=== PATIENT | male | born 1990 | race Two or more races ===

== ENCOUNTER 2016-05-08 17:39 | Emergency (ER) | payer OTHER ==
--- NOTE | 2016-05-08 18:14 | UC ---
Back Pain HPI - HPI Summary HPI Summary: The patient comes in today for: 1. Lower right back pain: Onset: This morning. Palliative/provocative: Nothing makes it better or worse. Quality: Sharp Region: Right lower back with radiation to the groin Severity: 02/11 Time: Constant. Associated symptoms: Fevers: No temperature taken at home. Kidney problems/stones: none before. * - History of Current Complaint Chief Complaint: UCBackPain Stated Complaint: BACK PAIN Time Seen by Provider: 05/08/16 17:52 Hx Obtained From: Patient - Allergies/Home Medications Allergies/Adverse Reactions: Allergies Allergy/AdvReac Type Severity Reaction Status Date / Time No Known Allergies Allergy Verified 05/08/16 17:50 Home Medications: Home Medications Ibuprofen [Advil] 400 mg PO ONCE PRN 05/08/16 [History Confirmed 05/08/16] PMH/Surg Hx/FS Hx/Imm Hx Previously Healthy: Yes Endocrine History Of: Denies: Diabetes, Thyroid Disease, Hyperthyroidism, Hypothyroidism, Dyslipidemia Cardiovascular History Of: Denies: Cardiac Disorders, Hypertension, Pacemaker/ICD, Myocardial Infarction , Congestive Heart Failure, Atrial Fibrillation, Deep Vein Thrombosis, Bleeding Disorders Respiratory History Of: Denies: COPD, Asthma, Bronchitis, Pneumonia, Pulmonary Embolism GI/ History Of: Denies: Gastroesophageal Reflux, Ulcer, Gastrointestinal Bleed, Gall Bladder Disease, Kidney Stones, Diverticulitis, Renal Disease, Urosepsis Neurological History Of: Denies: TIA, CVA, Dementia, Seizures, Migraine Psychological History Of: Denies: Anxiety, Depression, Bipolar Disorder, Schizophrenia, Post Traumatic Stress Disorder Cancer History Of: Denies: Lung Cancer, Colorectal Cancer, Breast Cancer, Prostate Cancer, Cervical Cancer Other History Of: Negative For: HIV, Hepatitis B, Hepatitis C, Anticoagulant Therapy - Surgical History Surgical History: Yes Surgery Procedure, Year, and Place: SURGERY FOR BOWEL OBSTRUCTION 2012 [facility]. SURGERY FOR BOWEL OBSTRUCTION [facility]ANT - Family History Known Family History: Positive: Other - Mother had kidney stone. Negative: Cardiac Disease, Hypertension - Social History Occupation: Employed Full-time Alcohol Use: Rare Substance Use Type: None Smoking Status (MU): Never Smoked Tobacco Review of Systems Constitutional: Fever Skin: Negative Eyes: Negative ENT: Negative Respiratory: Negative Cardiovascular: Negative Gastrointestinal: Abdominal Pain Genitourinary: Dysuria, Hematuria All Other Systems Reviewed And Are Negative: Yes Physical Exam Triage Information Reviewed: Yes Appearance: Pain Distress - He was crying at times during the exam., Thin Vital Signs: Initial Vital Signs Temp 100.5 F 05/08/16 17:47 Pulse 90 05/08/16 17:47 Resp 18 05/08/16 17:47 BP 128/73 05/08/16 17:47 Pulse Ox 99 05/08/16 17:47 Vital Signs Reviewed: Yes Eyes: Positive: Conjunctiva Inflamed - He states that his, Discharge - clear- tear-like ENT: Positive: Hearing grossly normal. Negative: Pharyngeal erythema, Nasal congestion, Nasal drainage, TM bulging, TM dull, TM red, Tonsillar swelling, Tonsillar exudate Dental: Negative: Gross Decay/Caries @, Dental Fracture @ Neck: Positive: Supple, Nontender, No Lymphadenopathy. Negative: Nuchal Rigidity Respiratory: Positive: Lungs clear, No respiratory distress, No accessory muscle use. Negative: Crackles, Wheezing Cardiovascular: Positive: RRR, No Murmur Abdomen Description: Positive: No Organomegaly, Soft, McBurney's Point Tenderness. Negative: Nontender - He has generalized tenderness to palpation of the abdomen. There was no rebound or percussion tenderness., CVA Tenderness (R), CVA Tenderness (L), Distended, Peritoneal Signs Musculoskeletal: Positive: Strength Intact, ROM Intact Neurological: Positive: Alert, Muscle Tone Normal Psychological: Positive: Normal Response To Family, Age Appropriate Behavior, Consolable Skin: Positive: Other - Positive-midline old surgical scar of the abdomen.. Negative: rashes, breakdown Diagnostics - Laboratory Diagnostic Studies Completed/Ordered: Urine screen: Specific gravity: 1.005. WBC: 25. Nitrite: (-). Blood: 3+. Protein: > 500. Glucose: (-) - Radiology No standard instances Xray Interpretation: Positive (See Comments) - IMPRESSION: Mild to moderate RIGHT hydronephrosis is traced to a 3.5 mm stone at the RIGHT ureterovesicular junction. Additional 4 mm stone midpole calyx RIGHT kidney. Radiology Interpretation Completed By: Radiologist Back Pain Course/Dx - Course Course Of Treatment: Patient was told of the abnormal CT scan. Case was discussed with him and family and he agrees to go to the ER for evaluation and treatment. He wants to go via ambulance. In terms of pain control, the patient declined an injection of pain medication ("I dont' want an injection in my butt.") - Differential Dx/Diagnosis Provider Diagnoses: Right moderat hydronephrosis/renal stones, abdominal pain, fever. Discharge - Discharge Plan Condition: Stable [facility] Additional Instructions: Patient going directly to the [facility].
--- NOTE | 2016-05-08 19:06 | RAD ---
INDICATION: RIGHT flank pain radiating to the groin. Hematuria. Previous surgery for bowel obstruction as an infant. COMPARISON: August 25, 2015 CT. TECHNIQUE: Multidetector CT images were obtained from the lung bases to the ischial tuberosities. Evaluation of the viscera is limited without IV contrast. Multiplanar reformation. REPORT: Unremarkable visualized inferior thorax. Negative for CT abnormality of the unenhanced liver, gallbladder, pancreas, spleen. Gastric distention with food stuff. No CT abnormality of the small bowel. 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 The appendix is not definitively identified with assessment limited without oral and IV contrast.. No pericecal inflammatory change evident. Negative for ascites, free air, hernias. Unremarkable adrenal glands. 4 mm mid pole calyceal stone RIGHT kidney. Mild to moderate RIGHT hydronephrosis is traced to a 3.5 mm stone at the RIGHT ureterovesicular junction. Negative for LEFT urolithiasis or hydronephrosis. Aside from the RIGHT UVJ stone the urinary bladder is grossly unremarkable. No lymphadenopathy evident. Unremarkable dominant retroperitoneal vasculature with physiologic distention of the IVC. Negative for suspicious osseous lesions. IMPRESSION: Mild to moderate RIGHT hydronephrosis is traced to a 3.5 mm stone at the RIGHT ureterovesicular junction. Additional 4 mm stone midpole calyx RIGHT kidney.
[2016-05-08 19:34] VITALS: BP 117/73
== END 2016-05-08 20:04 | disposition short-term general hospital (02) ==
LOC: UCEAST 17:39
DX: N13.2 Hydronephrosis with renal and ureteral calculous obstruction (principal); R10.31 Right lower quadrant pain; R50.9 Fever, unspecified
CPT/HCPCS: 74176; 81002; 87086; 99203; G0463

== ENCOUNTER 2016-05-08 20:24 | Emergency (ER) | payer OTHER ==
[2016-05-08] MEDS ORDERED: NS 0.9% 1000 ML* 2,000 ML IV ONE (20:53)
[2016-05-08] MEDS ORDERED: Ketorolac INJ* 30 MG/ML 1 ML VIAL IV ONE (20:53)
[2016-05-08] MEDS ORDERED: Ondansetron INJ* 2 MG/ML VIAL IV ONE (20:53)
[2016-05-08 21:09] LABS: Hematocrit 43 % (42-52); Hemoglobin 14.4 g/dl (14.0-18.0); Mean Corpuscular HGB Conc 33 g/dl (31-36); Mean Corpuscular Hemoglobin 29 pg (27-31); Mean Corpuscular Volume 88 fL (80-94); Mean Platelet Volume 9 um3 (7.4-10.4); Red Blood Count 4.89 10^6/ul (4.0-5.4); Red Cell Distribution Width 13 % (10.5-15); White Blood Count 12.4 10^3/ul (3.5-10.8)
[2016-05-08 21:20] LABS: Albumin 3.8 g/dL (3.2-5.2); BUN/Creatinine Ratio 10.9 (8-20); Calcium 8.8 mg/dL (8.6-10.3); EGFR African American 80.2 (>60); EGFR Non-African American 62.3 (>60); Globulin 2.7 g/dL (2-4); Magnesium 2.1 mg/dL (1.9-2.7); Potassium 3.4 mmol/L (3.5-5.0); Total Bilirubin 0.3 mg/dL (0.2-1.0); Total Protein 6.5 g/dL (6.4-8.9)
[2016-05-08] MEDS ORDERED: Tamsulosin CAP* 0.4 MG PO ONE (21:23)
--- NOTE | 2016-05-08 22:04 | ED ---
Michelle Tierney Claudia, scribed for Bobo Kitchen MD on 05/08/16 at 2054 . Abdominal Pain/Male - HPI Summary HPI Summary: 25 year old male presents to the ED with abd pain. Pt notes sudden onset when he woke up this am. Pt notes pain is a 10/10. He also admits to dysuria, fever and nausea but denies vomiting. Pt notes he has 2 kidney stones which was determined at [facility] earlier today. - History of Current Complaint Chief Complaint: EDFlankPain Stated Complaint: BACK PAIN Time Seen by Provider: 05/08/16 20:48 Hx Obtained From: Patient Onset/Duration: Sudden Onset, Still Present Timing: Constant Pain Intensity: 10 Pain Scale Used: 0-10 Numeric Location: Flank, Other - back Character: Sharp Associated Signs And Symptoms: Positive: Urinary Symptoms - Allergies/Home Medications Allergies/Adverse Reactions: Allergies Allergy/AdvReac Type Severity Reaction Status Date / Time No Known Allergies Allergy Verified 05/08/16 17:50 PMH/Surg Hx/FS Hx/Imm Hx Previously Healthy: Yes Endocrine/Hematology History: Denies: Hx Anticoagulant Therapy, Hx Diabetes, Hx Thyroid Disease Cardiovascular History: Denies: Hx Congestive Heart Failure, Hx Deep Vein Thrombosis, Hx Hypertension , Hx Myocardial Infarction, Hx Pacemaker/ICD Respiratory History: Denies: Hx Asthma, Hx Chronic Obstructive Pulmonary Disease (COPD), Hx Lung Cancer, Hx Pneumonia, Hx Pulmonary Embolism GI History: Denies: Hx Gall Bladder Disease, Hx Gastrointestinal Bleed, Hx Ulcer, Hx Urosepsis History: Denies: Hx Dialysis, Hx Kidney Stones, Hx Renal Disease Neurological History: Denies: Hx Dementia, Hx Migraine, Hx Seizures, Hx Transient Ischemic Attacks (TIA) Psychiatric History: Denies: Hx Anxiety, Hx Depression, Hx Schizophrenia, Hx Bipolar Disorder - Surgical History Surgery Procedure, Year, and Place: SURGERY FOR BOWEL OBSTRUCTION [address] [facility]. SURGERY FOR BOWEL OBSTRUCTION Infectious Disease History: No Infectious Disease History: Denies: Traveled Outside the [place] in Last 30 Days - Family History Known Family History: Positive: Other - Mother had kidney stone. Negative: Cardiac Disease, Hypertension - Social History Occupation: Employed Full-time Alcohol Use: Rare Substance Use Type: Reports: None Smoking Status (MU): Never Smoked Tobacco Review of Systems Positive: Fever Eyes: Negative ENT: Negative Cardiovascular: Negative Respiratory: Negative Positive: Abdominal Pain, Nausea. Negative: Vomiting Positive: dysuria, flank pain - and back pain Musculoskeletal: Negative Skin: Negative Neurological: Negative Psychological: Normal All Other Systems Reviewed And Are Negative: Yes Physical Exam Triage Information Reviewed: Yes Vital Signs On Initial Exam: Initial Vitals Temp Pulse Resp BP Pulse Ox 100.2 F 80 15 126/83 96 05/08/16 20:25 05/08/16 20:25 05/08/16 20:25 05/08/16 20:25 05/08/16 20:25 Vital Signs Reviewed: Yes Appearance: Positive: Pain Distress - mild discomfort, Thin Skin: Positive: Warm Head/Face: Positive: Normal Head/Face Inspection Eyes: Positive: RILEY ENT: Positive: Hearing grossly normal Neck: Positive: Supple Respiratory/Lung Sounds: Positive: Clear to Auscultation, Breath Sounds Present Cardiovascular: Positive: Normal Abdomen Description: Positive: Nontender, No Organomegaly, Soft. Negative: CVA Tenderness (R), CVA Tenderness (L) Bowel Sounds: Positive: Present Musculoskeletal: Positive: Strength/ROM Intact Neurological: Positive: Alert, Oriented to Person Place, Time Psychiatric: Positive: Normal Diagnostics - Vital Signs Vital Signs Temp Pulse Resp BP Pulse Ox 05/08/16 20:25 100.2 F 80 15 126/83 96 - Laboratory Lab Results: Lab Results 05/08/16 05/08/16 Range/Units 20:45 20:45 WBC 12.4 H (3.5-10.8) 10^3/ul RBC 4.89 (4.0-5.4) 10^6/ul Hgb 14.4 (14.0-18.0) g/dl Hct 43 (42-52) % MCV 88 (80-94) fL MCH 29 (27-31) pg MCHC 33 (31-36) g/dl RDW 13 (10.5-15) % Plt Count 182 (150-450) 10^3/ul MPV 9 (7.4-10.4) um3 Neut % (Auto) 80.1 (38-83) % Lymph % (Auto) 11.7 L (25-47) % [place] % (Auto) 7.6 (1-9) % Eos % (Auto) 0.3 (0-6) % Baso % (Auto) 0.3 (0-2) % Absolute Neuts (auto) 10.0 H (1.5-7.7) 10^3/ul Absolute Lymphs (auto) 1.5 (1.0-4.8) 10^3/ul Absolute Monos (auto) 1.0 H (0-0.8) 10^3/ul Absolute Eos (auto) 0 (0-0.6) 10^3/ul Absolute Basos (auto) 0 (0-0.2) 10^3/ul Absolute Nucleated RBC 0 10^3/ul Nucleated RBC % 0 Sodium 139 (133-145) mmol/L Potassium 3.4 L (3.5-5.0) mmol/L Chloride 107 (101-111) mmol/L Carbon Dioxide 28 (22-32) mmol/L Anion Gap 4 (2-11) mmol/L BUN 15 (6-24) mg/dL Creatinine 1.37 H (0.67-1.17) mg/dL Est GFR ( Amer) 80.2 (>60) Est GFR (Non-Af Amer) 62.3 (>60) BUN/Creatinine Ratio 10.9 (8-20) Glucose 116 H (70-100) mg/dL Calcium 8.8 (8.6-10.3) mg/dL Magnesium 2.1 (1.9-2.7) mg/dL Total Bilirubin 0.30 (0.2-1.0) mg/dL AST 18 (13-39) U/L ALT 10 (7-52) U/L Alkaline Phosphatase 77 (34-104) U/L Total Protein 6.5 (6.4-8.9) g/dL Albumin 3.8 (3.2-5.2) g/dL Globulin 2.7 (2-4) g/dL Albumin/Globulin Ratio 1.4 (1-3) Lipase 25 (11.0-82.0) U/L Result Diagrams: 05/08/16 20:45 05/08/16 20:45 Lab Statement: Any lab studies that have been ordered have been reviewed, and results considered in the medical decision making process. Re-Evaluation - Re-Evaluation 1 Re-Evaluation Time: 23:35 Change: Improved Comment: Patient is improved and agrees with the plan to be d/c home and follow- up with . Abdominal Pain Fem Course/Dx - Course Assessment/Plan: Pt presents with back/flank pain with Dx kidney stones. Pt pain is imporved in ED. Patient agrees with plan ot be d/c home with follow-up wih . - Diagnoses Provider Diagnoses: Renal colic Discharge - Discharge Plan Condition: Stable Disposition: HOME Prescriptions: Naproxen TAB* [Naprosyn TAB*] 500 mg PO BID #30 tab Tamsulosin CAP* [Flomax CAP*] 0.4 mg PO BEDTIME #7 cap Patient Education Materials: Kidney Stones (ED), Renal Colic (ED), Naproxen ( By mouth), Tamsulosin (By mouth) Referrals: Sam Parson MD [Medical Doctor] - 2 Days (Please follow-up. ) The documentation as recorded by the Michelle buitrago Claudia accurately reflects the service I personally performed and the decisions made by , Bobo Kitchen MD.
[2016-05-08 23:12] LABS: Urine Bacteria Absent (Absent); Urine Bilirubin Negative (Negative); Urine Glucose Negative (Negative); Urine Nitrite Negative (Negative)
[2016-05-08] MEDS ORDERED: HYDROcodone/ACETAMIN 5-325 MG* 1 TAB PO ONE (23:32)
[2016-05-08 23:53] VITALS: BP 118/74
== END 2016-05-08 23:52 | disposition home or self-care (01) ==
LOC: ED 20:24
DX: N23 Unspecified renal colic (principal); R10.84 Generalized abdominal pain; R50.9 Fever, unspecified; R11.0 Nausea; R30.0 Dysuria
CPT/HCPCS: 36415; 80053; 81003; 81015; 83690; 83735; 85025; 96374; 96375; 99282; J1885; J2405

== ENCOUNTER 2016-08-11 17:21 | Observation (INO) | payer SELFPAY ==
[2016-08-11] MEDS ORDERED: NS 0.9% 1000 ML* 2,000 ML IV ONE (17:39)
[2016-08-11] MEDS ORDERED: Ondansetron INJ* 2 MG/ML VIAL IV ONE ×2 (17:39→19:22)
[2016-08-11] MEDS ORDERED: Ondansetron INJ* 2 MG/ML VIAL ONE (17:42)
[2016-08-11] MEDS ORDERED: Ketorolac INJ* 30 MG/ML 1 ML VIAL IV PUSH ONE (17:43)
[2016-08-11] MEDS ORDERED: Morphine INJ* 4 MG/ML 1 ML SYRINGE IV ONE (17:43)
--- NOTE | 2016-08-11 17:44 | ED ---
Abdominal Pain/Male - HPI Summary HPI Summary: 25M w/ PMH of kidney stones and bowel obstruction presents with abdominal pain, n/v/d today. He states the pain feels the same to the bowel obstructions has had in the past. He states his pain is located at his umbilicus where he had a bowel obstruction last year. He states has an he had some abdominal surgery in [place]. Three years ago he had surgery for a bowel obstruction in [place]. He states the pain is 9/10 and cramp like. He denies anyone else being sick or eating anything out of the ordinary. He denies any blood in his stool. He denies any hematuria, dysuria, or fevers. He had a sandwich this morning at 11 and was okay for a couple hours when he started to burp. - History of Current Complaint Chief Complaint: Oswaldo Stated Complaint: ABD PAIN,VOMITING Time Seen by Provider: 08/11/16 17:38 Pain Intensity: 9 - Allergies/Home Medications Allergies/Adverse Reactions: Allergies Allergy/AdvReac Type Severity Reaction Status Date / Time No Known Allergies Allergy Verified 08/11/16 17:31 PMH/Surg Hx/FS Hx/Imm Hx Endocrine/Hematology History: Denies: Hx Anticoagulant Therapy, Hx Diabetes, Hx Thyroid Disease Cardiovascular History: Denies: Hx Congestive Heart Failure, Hx Deep Vein Thrombosis, Hx Hypertension , Hx Myocardial Infarction, Hx Pacemaker/ICD Respiratory History: Denies: Hx Asthma, Hx Chronic Obstructive Pulmonary Disease (COPD), Hx Lung Cancer, Hx Pneumonia, Hx Pulmonary Embolism GI History: Reports: Hx Obstructive Bowel Denies: Hx Gall Bladder Disease, Hx Gastrointestinal Bleed, Hx Ulcer, Hx Urosepsis History: Denies: Hx Dialysis, Hx Kidney Stones, Hx Renal Disease Neurological History: Denies: Hx Dementia, Hx Migraine, Hx Seizures, Hx Transient Ischemic Attacks (TIA) Psychiatric History: Denies: Hx Anxiety, Hx Depression, Hx Schizophrenia, Hx Bipolar Disorder - Surgical History Surgery Procedure, Year, and Place: SURGERY FOR BOWEL OBSTRUCTION 2012 [facility]. SURGERY FOR BOWEL OBSTRUCTION Infectious Disease History: No Infectious Disease History: Denies: Traveled Outside the US in Last 30 Days - Family History Known Family History: Positive: Other - Mother had kidney stone. Negative: Cardiac Disease, Hypertension - Social History Alcohol Use: Rare Substance Use Type: Reports: None Smoking Status (MU): Never Smoked Tobacco Review of Systems Negative: Fever Negative: Chest Pain Negative: Shortness Of Breath Positive: Abdominal Pain, Vomiting, Diarrhea, Nausea All Other Systems Reviewed And Are Negative: Yes Physical Exam Triage Information Reviewed: Yes Vital Signs On Initial Exam: Initial Vitals Temp Pulse Resp BP Pulse Ox 97.8 F 76 18 113/62 100 08/11/16 17:31 08/11/16 17:31 08/11/16 17:31 08/11/16 17:31 08/11/16 17:31 Vital Signs Reviewed: Yes Appearance: Positive: Pain Distress Skin: Positive: Warm, Dry Head/Face: Positive: Normal Head/Face Inspection Eyes: Positive: Normal, Conjunctiva Clear Respiratory/Lung Sounds: Positive: Clear to Auscultation, Breath Sounds Present Cardiovascular: Positive: Normal, RRR Abdomen Description: Positive: Soft, Other: - tenderness at umblicius where incision scar is. Negative: Distended, Guarding Diagnostics - Vital Signs Vital Signs Temp Pulse Resp BP Pulse Ox 08/11/16 17:31 97.8 F 76 18 113/62 100 - Laboratory Result Diagrams: 08/11/16 17:54 08/11/16 17:54 Lab Statement: Any lab studies that have been ordered have been reviewed, and results considered in the medical decision making process. - Radiology ab Xray Interpretation: Positive (See Comments) - IMPRESSION: SUSPECT SMALL BOWEL OBSTRUCTION. SUGGEST FOLLOW-UP. Radiology Interpretation Completed By: Radiologist Re-Evaluation - Re-Evaluation First Eval Re-Evaluation Time: 18:45 Change: Improved Comment: no longer nausous and pain is mild. Abdominal Pain Fem Course/Dx - Course Course Of Treatment: 25M presents with abdominal pain, n/v/d today. states similiar symptoms in past when had obstruction in past. on exam moderate tenderness at umblicus where surgical scar is. no rebound tenderness. xray shows scattered air fluid levels. spoke with dr godinez who will see in ED. dr godinez recommends placing NG tube and will admit - Diagnoses Differential Diagnosis/HQI/PQRI: Appendicitis, Bowel Obstruction, Other - gastroenteritis Provider Diagnoses: Bowel obstruction - Provider Notifications Discussed Care Of Patient With: dr godinez Time Discussed With Above Provider: 18:56 - will see in ED Discharge - Discharge Plan Condition: Stable Disposition: ADMITTED TO [facility]
[2016-08-11 18:02] LABS: Add Diff/Slide Review? Slide Review Added; Comments Flag Yes; Hematocrit 48 % (42-52); Hemoglobin 15.5 g/dl (14.0-18.0); Mean Corpuscular HGB Conc 33 g/dl (31-36); Mean Corpuscular Hemoglobin 29 pg (27-31); Mean Corpuscular Volume 89 fL (80-94); Mean Platelet Volume 9 um3 (7.4-10.4); Red Blood Count 5.33 10^6/ul (4.0-5.4); Red Cell Distribution Width 14 % (10.5-15); White Blood Count 16.8 10^3/ul (3.5-10.8)
[2016-08-11 18:18] LABS: Albumin 4.6 g/dL (3.2-5.2); BUN/Creatinine Ratio 14.5 (8-20); Calcium 9.8 mg/dL (8.6-10.3); EGFR African American 142.9 (>60); EGFR Non-African American 111.1 (>60); Globulin 3.3 g/dL (2-4); Potassium 3.5 mmol/L (3.5-5.0); Total Bilirubin 0.4 mg/dL (0.2-1.0); Total Protein 7.9 g/dL (6.4-8.9)
--- NOTE | 2016-08-11 18:36 | RAD ---
INDICATION: History of bowel obstruction COMPARISON: CT May 08, 2016 TECHNIQUE: Erect and supine views of the abdomen are submitted. FINDINGS: Bones: There are no acute bony findings. Soft tissues: The soft tissues appear normal. The psoas margins are sharp. Bowel gas pattern: Paucity of gas in the colon. Distended stomach consistent unchanged) with scattered air-fluid levels suggests the possibility of bowel obstruction Calcifications: There are no abnormal calcifications. Other: None IMPRESSION: SUSPECT SMALL BOWEL OBSTRUCTION. SUGGEST FOLLOW-UP.
[2016-08-11] MEDS ORDERED: LORazepam INJ* 2 MG/ML 1 ML VIAL IV PUSH ONE (19:43)
[2016-08-11] MEDS ORDERED: LORazepam TAB(*) 1 MG PO ONE (19:43)
--- NOTE | 2016-08-11 20:35 | HP ---
H&P (Free Text) History and Physical: Surgery H & P Asked by ER to evaluate a pt. with abdominal pain and possible SBO. This pt. is a 25 y.o. male who reports he developed burping of foul-smelling stuff yesterday. He recognized this as small bowel obstruction which he had a year or so ago. This required operation when he became doubled over in pain. He says he would prefer an operation to an NGT. He has vomited, had diarrhea and a fever. He felt better a little while ago. PMHx: none PSHx: unknown abdominal operation as , SBO recently Meds: none NKDA ROS: denies SH: occ tob.; occ EtOH; neg. IVDA FH: unknown, adopted. PE: general: WDWN male in NAD Vital Signs 08/11/16 08/11/16 08/11/16 17:31 17:56 17:59 Temperature 97.8 F Pulse Rate 76 72 Respiratory 18 16 Rate Blood Pressure 113/62 107/66 (mmHg) O2 Sat by Pulse 100 98 Oximetry 08/11/16 08/11/16 08/11/16 18:00 18:30 19:00 Temperature Pulse Rate 68 75 99 Respiratory Rate Blood Pressure 107/61 102/56 112/58 (mmHg) O2 Sat by Pulse 98 98 98 Oximetry HEENT: anicteric sclerae, moist oral mucosa, neg. cervical adenopathy lung: clear to ausc. heart: reg. abd: good BS, distended, well-healed upper midline scar; fullness and tympany in mid abd. ext: neg. cyanosis, edema Laboratory Results - last 24 hr 08/11/16 08/11/16 17:54 17:54 WBC 16.8 H RBC 5.33 Hgb 15.5 Hct 48 MCV 89 MCH 29 MCHC 33 RDW 14 Plt Count 188 MPV 9 Neut % (Auto) 74.9 Lymph % (Auto) 13.9 L [place] % (Auto) 9.6 H Eos % (Auto) 0.9 Baso % (Auto) 0.7 Absolute Neuts (auto) 12.6 H Absolute Lymphs (auto) 2.3 Absolute Monos (auto) 1.6 H Absolute Eos (auto) 0.1 Absolute Basos (auto) 0.1 Absolute Nucleated RBC 0 Nucleated RBC % 0 Sodium 138 Potassium 3.5 Chloride 104 Carbon Dioxide 28 Anion Gap 6 BUN 12 Creatinine 0.83 Est GFR ( Amer) 142.9 Est GFR (Non-Af Amer) 111.1 BUN/Creatinine Ratio 14.5 Glucose 94 Calcium 9.8 Total Bilirubin 0.40 AST 22 ALT 25 Alkaline Phosphatase 100 C-React Prot High Sens 0.87 Total Protein 7.9 Albumin 4.6 Globulin 3.3 Albumin/Globulin Ratio 1.4 Lipase 25 AXR: paucity of colonic gas, some SB AF levels. A/P: Probable pSBO. will place NGT and hydrate overnight, re-check AXR in AM. Will need to consider OR if no improvement. CLFoster
[2016-08-11] MEDS: D5W 1/2 NS KCl 20 Meq 1000 ML* 1,000 ML IV SCH (23:01)
[2016-08-11] MEDS: Famotidine IV* 10 MG/ML 2 ML (20 mg) IV SCH (23:05)
[2016-08-12] MEDS: Morphine INJ* 2 MG/ML 1 ML SYRINGE IV PRN ×3 (03:40→09:10)
[2016-08-12] MEDS: Ondansetron INJ* 2 MG/ML VIAL IV PRN ×2 (03:49→09:35)
[2016-08-12] MEDS: D5W 1/2 NS KCl 20 Meq 1000 ML* 1,000 ML IV SCH (06:29)
--- NOTE | 2016-08-12 08:29 | RAD ---
INDICATION: Small bowel obstruction COMPARISON: August 11, 2016 TECHNIQUE: Erect and supine views of the abdomen are submitted. FINDINGS: Bones: There are no acute bony findings. There is nasogastric tube decompressing the stomach Soft tissues: The soft tissues appear normal. The psoas margins are sharp. Bowel gas pattern: Normal Calcifications: There are no abnormal calcifications. Other: None IMPRESSION: RESOLUTION OF SMALL BOWEL OBSTRUCTION
[2016-08-12] MEDS: Famotidine IV* 10 MG/ML 2 ML (20 mg) IV SCH (09:06)
--- NOTE | 2016-08-12 10:40 | SURGPN ---
Subjective - Introduction -: Reports feeling much better this am. Had multiple small BMs last night, passing flatus. Denies N/V, feels hungry. Denies any abdominal pain. - Medications -: Active Medications Generic Name Dose Route Start Last Admin Trade Name Freq PRN Reason Stop Dose Admin Famotidine 20 mg 08/11/16 21:00 08/12/16 09:06 Pepcid Iv* IV 20 mg BID TRISTIN Administration Potassium Chloride/Dextrose 1,000 mls @ 125 mls/hr 08/11/16 21:00 08/12/16 06 :29 D5w 1/2 Ns Kcl 20 Meq 1000 Ml* IV 125 mls/hr PER RATE TRISTIN Administration Morphine Sulfate 2 mg 08/11/16 20:38 08/12/16 09:10 Morphine Inj (Syringe)* IV 2 mg Q2H PRN Administration PAIN Ondansetron HCl 4 mg 08/11/16 20:38 08/12/16 09:35 Zofran Inj* IV 4 mg Q6H PRN Administration NAUSEA Objective - Objective -: Awake and alert, in NAD. - Intake and Output -: Intake & Output 08/10/16 08/11/16 08/12/16 08/13/16 06:59 06:59 06:59 06:59 Intake Total 917 20 Output Total 275 Balance 642 20 Weight 125 lb Intake: IV Fluids 917 20 Oral 0 Output: Urine 275 Surgical Physical Exam - Comments -: VSS, afebrile Abdomen soft, NT, ND Bowel sounds active in all quadrant Abdominal xray with resolved SBO Assessment and Plan - Assessment -: A 25 y/o male with resolved SBO - Plan Surgical Plan of Care: Advance Diet, Discontinue NG Tube - will d/c NG tube and start clear liquids trial Additional Comments: Encourage to ambulate today. Hopefully home later this pm or tomorrow morning. Will advance diet as tolerated.
[2016-08-12 16:24] VITALS: BP 121/67
--- NOTE | 2016-08-13 17:08 | DS ---
DISCHARGE SUMMARY: DATE OF ADMISSION: 08/11/16 DATE OF DISCHARGE: 08/12/16 ATTENDING PHYSICIAN: Dr. Alexandria Moraes. (DICTATED BY TANI CORONA) HOSPITAL COURSE: Please refer to admission history and physical for admission details. Briefly, the patient presented to the ED with signs and symptoms and plain films of the abdomen that were consistent with partial small bowel obstruction. He was treated with IV fluids and NG tube decompression with significant improvement overnight: He was pain free and passing both flatus and multiple stools in the interim. Repeat plain film of the abdomen on showed resolution of the small bowel obstruction. NG tube was removed. He was begun on clear liquids which he tolerated well. As of the evening of discharge, he was pain free and without nausea or vomiting. Most recent vital signs: Temperature 97.9, blood pressure 121/67, pulse 76, respirations 16, and room air saturation 100%. General: Appears well and in no acute distress. Abdomen: Nondistended, nontympanitic, soft, and nontender to palpation. IMPRESSION: Partial small bowel obstruction, resolved. PLAN: Home this evening. Instructions were reviewed regarding advancement of diet. He would like to plan to return to work as of tomorrow and a note was written to that effect. Followup in our office will be p.r.n. The patient was given our office contact information. TANI PEARSON\ CC: Dr. Alexandria Moraes; Dr. Gilbert Rivera [facility]* [id number]/[facility] #: [id number] [facility]
== END 2016-08-12 19:35 | disposition home or self-care (01) ==
LOC: ED 17:21 → SSU 20:35
PROVIDERS: ADMIT Surgery; ATTEND Surgery
DX: K56.60 Unspecified intestinal obstruction (principal)
CPT/HCPCS: 36415; 74020; 80053; 83690; 85025; 86141; 96361; 96365; 96366; 96375; 96376; 99284; G0378; J1885; J2060; J2270; J2405